=== PATIENT | female | born 1995 | race Caucasian/White ===

== ENCOUNTER 2017-05-22 19:56 | Emergency (ER) | payer OTHER ==
[~2017-05-22] VITALS: Ht 175.3 cm; Wt 78.6 kg
[2017-05-22 22:37] VITALS: BP 132/83
== END 2017-05-22 22:37 | disposition home or self-care (01) ==
LOC: RME 19:56 → EME 19:56 → RME 22:37
DX: S61.211A Laceration without foreign body of left index finger without damage to nail, initial encounter (principal); W26.0XXA Contact with knife, initial encounter; Z28.21 Immunization not carried out because of patient refusal
CPT/HCPCS: 73130; 99281; 99284